=== PATIENT | female | born 1985 | race Two or more races ===

== ENCOUNTER 2020-06-06 09:25 | Outpatient (REF) | payer OTHER, SELFPAY | END 2020-06-06 09:26 | disposition home or self-care (01) | LOC: HO.LAB 09:25 | PROVIDERS: Visit Provider Internal Medicine | DX: Z20.828 Contact with and (suspected) exposure to other viral communicable diseases (principal) | CPT/HCPCS: C9803; U0003 ==

== ENCOUNTER 2020-09-25 09:33 | Outpatient (REF) | payer OTHER, SELFPAY ==
[2020-09-25 10:11] LABS: MANUAL DIFF FLAG NO
[2020-09-25 10:20] LABS: Basophils Percent Auto 0.9 % (0-2); Eosinophils Absolute Auto 0.1 X10*3/uL (0.0-0.4); Eosinophils Percent Auto 1.8 % (0-4); Hematocrit 35.3 % (37-47); Imm Gran Abs Auto 0.01 X10*3/uL (0.00-0.03); Imm Gran Pct Auto 0.2 % (0.0-0.4); Lymphocytes Percent Auto 44.4 % (20-40); Mean Corpuscular Hemoglobin 29.2 pg (27.0-33.0); Mean Corpuscular Volume 85.9 fL (80-98); Mean Platelet Volume 10.2 fL (9.4-12.3); Monocytes Absolute Auto 0.3 X10*3/uL (0.1-1.2); Monocytes Percent Auto 5.7 % (2-11); Neutrophils Absolute Auto 2.1 X10*3/uL (2.0-8.3); Platelet Count 324 X10*3/uL (160-400); Red Blood Count 4.11 X10*6/uL (4.20-5.50); Red Cell Distribution Width 13.1 % (11.0-16.0); White Blood Count 4.4 X10*3/uL (4.8-10.8)
[2020-09-25 10:49] LABS: Alanine Aminotransferase 21 U/L (0-31); Albumin Level 4.3 g/dL (3.5-5.0); Alkaline Phosphatase 74 U/L (39-117); Anion Gap 10 (12-20); Aspartate Amino Transferase 23 U/L (5-31); Bilirubin Total 0.3 mg/dL (0.0-1.0); Blood Urea Nitrogen 12 mg/dL (9-16); Calcium 8.9 mg/dL (8.4-10.2); Carbon Dioxide 25 mmol/L (22-29); Chloride 107 mmol/L (96-108); Cholesterol 188 mg/dL; Estimated Glomerular Filt Rate > 60; Glucose Fasting 93 mg/dL (60-99); HDL Cholesterol 44 mg/dL; LDL Cholesterol Calculated 130 mg/dl; Potassium 4.2 mmol/L (3.3-5.1); Sodium 138 mmol/L (135-145); Total Protein 7.3 g/dL (6.5-8.0); Triglycerides 73 mg/dL
[2020-10-01 12:36] LABS: Vitamin D 25-OH, D2 <4 ng/mL; Vitamin D 25-OH, D3 13 ng/mL; Vitamin D 25-OH, Total 13 ng/mL (30-100)
== END 2020-09-25 09:34 | disposition home or self-care (01) ==
LOC: HO.LAB 09:33
PROVIDERS: PCP Internal Medicine; Visit Provider Internal Medicine
DX: E78.5 Hyperlipidemia, unspecified (principal); E55.9 Vitamin D deficiency, unspecified; Z13.0 Encounter for screening for diseases of the blood and blood-forming organs and certain disorders involving the immune mechanism; Z82.49 Family history of ischemic heart disease and other diseases of the circulatory system
CPT/HCPCS: 36415; 80053; 80061; 82306; 85025

== ENCOUNTER 2021-09-15 09:46 | Outpatient (REF) | payer OTHER, SELFPAY ==
[2021-09-15 10:13] LABS: MANUAL DIFF FLAG NO
[2021-09-15 10:41] LABS: Basophils Percent Auto 0.6 % (0-2); Eosinophils Absolute Auto 0.1 X10*3/uL (0.0-0.4); Eosinophils Percent Auto 2.1 % (0-4); Hemoglobin 12.4 g/dl (12.0-16.0); Imm Gran Abs Auto 0.01 X10*3/uL (0.00-0.03); Imm Gran Pct Auto 0.2 % (0.0-0.4); Lymphocytes Absolute Auto 2.6 X10*3/uL (1.2-4.9); Lymphocytes Percent Auto 54.6 % (20-40); Mean Corpuscular HGB Conc 33.5 g/dl (31.0-35.0); Mean Corpuscular Hemoglobin 29.2 pg (27.0-33.0); Mean Corpuscular Volume 87.3 fL (80.0-98.0); Mean Platelet Volume 9.9 fL (9.4-12.3); Monocytes Absolute Auto 0.3 X10*3/uL (0.1-1.2); Monocytes Percent Auto 6.6 % (2-11); Neutrophils Absolute Auto 1.7 x10*3/uL (2.0-8.3); Neutrophils Percent Auto 35.9 % (45-73); Platelet Count 339 X10*3/uL (160-400); Red Blood Count 4.24 X10*6/uL (4.20-5.50); Red Cell Distribution Width 12.4 % (11.0-16.0); White Blood Count 4.7 X10*3/uL (4.8-10.8)
[2021-09-19 13:41] LABS: Vitamin D 25-OH, D2 6 ng/mL; Vitamin D 25-OH, D3 10 ng/mL; Vitamin D 25-OH, Total 16 ng/mL (30-100)
== END 2021-09-15 09:47 | disposition home or self-care (01) ==
LOC: HO.LAB 09:46
PROVIDERS: PCP Internal Medicine; Visit Provider Internal Medicine
DX: G43.909 Migraine, unspecified, not intractable, without status migrainosus (principal); E55.9 Vitamin D deficiency, unspecified
CPT/HCPCS: 36415; 82306; 85025

== ENCOUNTER 2023-01-20 20:09 | Emergency (ER) | payer OTHER, SELFPAY ==
[2023-01-20 20:37] VITALS: BP 106/81; PULSE 83; RESP 16; TEMP 36.4; O2SAT 98; BMI 25.2
--- NOTE | 2023-01-20 20:37 | ED.SKABFB ---
HPI - Skin/Abscess/Foreign Bdy General Chief complaint: General Medical Stated complaint: Draining a cyst Time Seen by Provider: 01/21/23 01:30 Source: patient Mode of arrival: ambulatory Limitations: no limitations History of Present Illness HPI narrative: patient with 3 days of bartholyns cyst now with increasing pain and size complaint: abscess/boil Onset (ago): day(s) Tetanus up to date: yes Related Data Previous Rx's Medication Instructions Recorded docusate sodium 100 mg capsule 100 mg PO DAILY PRN constipation 09/15/21 (Colace) 90 days #90 caps sumatriptan succinate 25 mg tablet 25 mg PO Q2-4H PRN migraine 11/01/21 headache 30 days #9 tabs cholecalciferol (vitamin D3) 50 50 mcg PO DAILY 90 days #90 caps 12/31/21 mcg (2,000 unit) capsule Allergies Allergy/AdvReac Type Severity Reaction Status Date / Time No Known Allergies Allergy Verified 01/20/23 20:37 Review of Systems Review of Systems: Yes all other systems are reviewed and are negative Genitourinary: Comments: vaginal pain and swelling Neurologic: Denies Sensory deficit (Neuro) PMFSH Past Medical History Medical History Benign mole Constipation by delayed colonic transit Encounter for physical examination Family history of hypertension Hypovitaminosis D Migraines Screening for deficiency anemia Surgical History History of section History of tubal ligation Family History Family History Father Mental health disorder Mother Diabetes Hepatitis C Liver disease Hypertension Stroke Mental health disorder Substance use disorder Maternal Grandmother Stroke Daughter In good health Sister In good health Brother No problems noted. Son In good health Social History Social History Housing: House Alcohol intake: current Alcohol intake frequency: holidays/special occasions only Alcohol type: hard liquor Patient Tobacco Use Status: Never used Tobacco Smoked in Last 30 Days: No e-Cigarette/Vaping Use: Never Used Second Hand Smoke Exposure: Yes Use of substances other than those prescribed or required for medical reasons: No Advance Directives: No Advance Directives Information Provided: Yes Patient : No service: No Current occupational status: employed Current occupational exposures/hazards: No Cognitive needs: No Hearing needs: No Vision needs: No Physical Exam Vital Signs: Vital Signs: Last Vital Signs Temp 98.1 F 01/21/23 01:04 Pulse 86 01/21/23 01:04 Resp 17 01/21/23 01:04 BP 127/80 01/21/23 01:04 Pulse Ox 99 01/21/23 01:04 O2 Del Method Room Air 01/21/23 01:04 BMI result Body Mass Index 25.2 Const: General: healthy appearing Nutritional Appearance: average body habitus Orientation/consciousness: oriented to person and patient oriented x3 Limitations: no limitations HEENT: Head: Yes normal to inspection Ears: external ears normal General nose exam: Normal external nose present Mouth: Normal oral and palatal mucosa present and oropharynx normal Throat: Yes posterior oropharynx normal Eyes: General: appearance normal, both eyes and all related structures Neck: Other: supple Neck: Yes normal visual inspection Chest: Chest palpation & inspection: normal inspection of the chest Resp: Auscultation: clear to auscultation bilaterally Cardio: Jugular venous distension: no JVD Rate: regular rate Rhythm: regular rhythm Heart sounds: S1 normal heart sound present and S2 normal heart sound present GI: Inspection: Yes normal to inspection Palpation (GI): Soft to palpation, nontender and No hepatosplenomegaly present Auscultation: normal bowel sounds : Other: right labial minora swelling with pain General: Yes no CVA tenderness Back/Spine/Pelvis: Back: no CVA tenderness Skin: General skin exam: no rashes or lesions noted Neuro: General: oriented to person and patient oriented x3 Cranial nerves: Yes CN's II-XII intact bilaterally Motor exam (neuro): 5/5 motor strength present throughout Sensory Exam: No Sensory deficit (Neuro) Extrem: General: Yes normal to inspection Psych: Appearance: grossly normal Course Course Course Narrative: RME: 37yo F w/PMHx migraines, Bartholin's cyst, c/o Bartholin's cyst to R side x3 days. denies being open & draining at present. no difficulty urinating or defecating. LMP now Area not evaluated in triage Full HPI, ROS and PE to be performed by primary ED provider. Medications Administered Discontinued Medications Generic Name Dose Route Start Last Admin Trade Name Freq PRN Reason Stop Dose Admin Lidocaine/Epinephrine 10 ml 01/21/23 01:49 01/21/23 01:57 Lidocaine Hcl 1%/Epi 1:100,000 10 Ml Vial SUBCUT 01/21/23 01:50 10 ml ONCE ONE Administration Medical Decision Making Differential Diagnosis Differential Diagnoses: The differential diagnosis associated with the presentation includes (Bartholyns cyst , labial abscess) Tests considered The following testing was considered but not selected: considered obtaining an ultrasound, but cyst consistent with bartholyn's Prescription Management I considered prescription management with: Pain Medication (i considered narcotics but patients pain relieved with drainage) and Antibiotic (antibiotics considered but excellent drainage and word catheter in place) Chronic Conditions Patient?s care impacted by: Other (prior bartholyns cyst) Procedures Procedure Narrative Procedure Narrative: Patient prepped and draped in sterile fashion. !% epi with lidocaine used for anesthesia. 11 blade used, large amount of pus removed, word catheter placed Patient tolerated procedure well Discharge Plan Discharge Clinical Impression: Bartholin's cyst Patient Disposition: Home, Self-Care Instructions: Bartholin Cyst (ED) Prescriptions: No Action sumatriptan succinate 25 mg tablet 25 mg PO Q2-4H PRN (Reason: migraine headache) 30 Days Qty: 9 1RF Rx Instructions: do not exceed 8 doses per 24 hrs cholecalciferol (vitamin D3) 50 mcg (2,000 unit) capsule 50 mcg PO DAILY 90 Days Qty: 90 1RF docusate sodium [Colace] 100 mg capsule 100 mg PO DAILY PRN (Reason: constipation) 90 Days Qty: 90 0RF Referrals: Liliana Perry MD [Primary Care Provider] - 3 days
[2023-01-21 01:04] VITALS: BP 127/80; PULSE 86; RESP 17; TEMP 36.7; O2SAT 99
[2023-01-21] MEDS: Lidocaine HCl 1%/Epi 1:100,000 10 ML VIAL SUBCUT (01:57)
--- NOTE | 2023-01-21 02:48 | MHC.EDTECH ---
This tech assisted with the set up of an I&D procedure, pt tolerated this procedure very well.awaiting discharge at this time
== END 2023-01-21 02:55 | disposition home or self-care (01) ==
PROVIDERS: Emergency Provider Emergency Medicine; PCP Internal Medicine
DX: N75.0 Cyst of Bartholin's gland (principal); Z79.899 Other long term (current) drug therapy
CPT/HCPCS: 56420; 99284

== ENCOUNTER 2023-08-04 12:23 | Outpatient (REF) | payer OTHER, SELFPAY ==
[2023-08-04 13:28] LABS: Alanine Aminotransferase 17 U/L (0-31); Albumin Level 4.2 g/dL (3.5-5.0); Alkaline Phosphatase 70 U/L (39-117); Anion Gap 13 (12-20); Aspartate Amino Transferase 16 U/L (5-31); Bilirubin Total 0.3 mg/dL (0.0-1.0); Blood Urea Nitrogen 8 mg/dL (9-16); Carbon Dioxide 25 mmol/L (22-29); Chloride 107 mmol/L (96-108); Cholesterol 180 mg/dL (<200); Estimated Glomerular Filt Rate > 60; Glucose Fasting 91 mg/dL (60-99); HDL Cholesterol 47 mg/dL (>40); LDL Cholesterol Calculated 113 mg/dL (<100); Potassium 3.8 mmol/L (3.3-5.1); Sodium 141 mmol/L (135-145); Total Protein 7.3 g/dL (6.5-8.0); Triglycerides 101 mg/dL (<150)
[2023-08-04 13:46] LABS: Vitamin D 25-OH Total 8.5 ng/mL (>30)
== END 2023-08-04 12:24 | disposition home or self-care (01) ==
LOC: HO.LAB 12:23
PROVIDERS: PCP Internal Medicine; Visit Provider Internal Medicine
DX: Z00.00 Encounter for general adult medical examination without abnormal findings (principal); E55.9 Vitamin D deficiency, unspecified
CPT/HCPCS: 36415; 80053; 80061; 82306

== ENCOUNTER 2024-05-27 17:15 | Outpatient (AMB) | payer OTHER, SELFPAY ==
--- NOTE | 2024-05-27 17:17 | A.OFFPC_ITS ---
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 Accompanied by: Self / Same As Patient Allergies No Known Allergies Allergy (Verified 05/27/24 17:43) Medication List - Last Reconciled 05/27/24 by Liliana Moss MD sumatriptan succinate 25 mg PO Q2-4H PRN 30 days Tobacco use date assessed: 05/27/24 Dental Screening Dental Screen Date: 05/27/24 Did you have a dental visit in the last 12 months?: No Did you have a dental problem in the last 6 months where you did not have access to dental care?: No Was dental information given to patient?: Patient has dentist HPI HPI Comments History of Present Illness Details The patient is a 38-year-old female presenting for her physical exam. She reports experiencing sinus issues, for which she has been advised to seek medical treatment. Additionally, she experiences constipation, having bowel movements less than three times a week, which aligns with her experiences of infrequent bowel movements every two to three days. She has a history of migraine, managed with sumatriptan, and notes two prior sections and tubal ligation in 2009. The patient experiences mild depression and anxiety but considers them manageable without external intervention. Her last gynecological screening with a Pap smear was conducted earlier this year and was noted as normal. [facility] Medical History Constipation by delayed colonic transit Encounter for physical examination Benign mole Migraines Hypovitaminosis D Family history of hypertension Screening for deficiency anemia Surgical History History of tubal ligation History of section Family History Father Mental health disorder Mother Diabetes Hepatitis C Liver disease Hypertension Stroke Mental health disorder Substance use disorder Maternal Grandmother Stroke Daughter In good health Sister In good health Brother No problems noted. Son In good health Social History Housing: House Alcohol intake: current Alcohol intake frequency: holidays/special occasions only Alcohol type: hard liquor Patient Tobacco Use Status: Never used Tobacco e-Cigarette/Vaping Use: Never Used Second Hand Smoke Exposure: Yes service: No Current occupational status: employed Current occupational exposures/hazards: No Cognitive needs: No Hearing needs: No Vision needs: No Questionnaire PHQ-9 Over the last 2 weeks, how often have you been bothered by any of the following problems? 1. Little interest or pleasure in doing things: several days 2. Feeling down, depressed, or hopeless: several days 3. Trouble falling or staying asleep, or sleeping too much: not at all 4. Feeling tired or having little energy: several days 5. Poor appetite or overeating: several days 6. Feeling bad about yourself - or that you are a failure or have let yourself or your family down: several days 7. Trouble concentrating on things, such as reading the newspaper or watching television: not at all 8. Moving or speaking so slowly that other people could have noticed. Or the opposite - being so fidgety or restless that you have been moving around a lot more than usual: several days 9. Thoughts that you would be better off or of hurting yourself in some way: not at all Total score: 6 Depression Screening Interpretation: Positive Depression Screening Follow-up: Existing condition and Follow-up Visit Requested Depression Screening Done: Yes 43638 - PHQ-9 Billing: Yes Source: Developed by Drs. Rony Thomas, Cari Stewart, Mitchell Chairez and colleagues, with an educational kaylee from [employer]. Thrive Questionnaire Date Thrive assessed: 05/27/24 I am a: Patient What is your living situation today?: I have a steady place to live Within the past 12 months, did the food you bought not last and you didn't have the money to get more?: Sometimes True Within the past 12 months, did you worry whether your food would run out before you got money to buy more?: Sometimes True Do you have trouble paying for medicines?: No Do you have trouble getting transportation to medical appointments?: No Do you have trouble paying your heating and electricity bill?: No Do you have trouble taking care of your child, family member or friend?: No Do you have trouble with day-to-day activities such as bathing, preparing meals, shopping, managing finances, etc.?: No Are you currently unemployed and looking for a job?: No Are you interested in more education?: Yes Please select the resources that you would like help with: None Currently or been in a relationship where the following occur: No concerns r eported THRIVE Score: 2 AUDIT C Alcohol Use Questionnaire (AUDIT-C) 1. How often do you have a drink containing alcohol?: Monthly or less 2. How many drinks containing alcohol do you have on a typical day when you are drinking?: 3 or 4 3. How often do you have six or more drinks on one occasion?: Never Total Score: 2 Score Reviewed/Action Taken: No CORNELIA-7 AMB Questionnaire CORNELIA-7 Date CORNELIA - 7 assessed: 05/27/24 Feeling nervous, anxious, or on edge: 1 = Several days Not being able to stop or control worryin = Several days Worrying too much about different things: 1 = Several days Trouble relaxin = Several days Being so restless that it is hard to sit still: 0 = Not at all Becoming easily annoyed or irritable: 1 = Several days Feeling afraid as if something awful might happen: 0 = Not at all Total CORNELIA-7 score (0-4 normal; 5-9 mild; 10-14 moderate; 15-21 severe): 5 Source: Developed by Drs. Rony Thomas, Cari Stewart, Mitchell Chairez and colleagues, with an educational kaylee from [employer]. CORNELIA-7 Assessment Billing CORNELIA-7 Assessment Tool: CORNELIA-7 Assessment 78044 Review of Systems Const All systems reviewed & are unremarkable except as noted in HPI and below Card Denies chest pain at rest, Denies chest pain with activity, Denies edema, Denies irregular heart rhythm, Denies claudication, Denies dyspnea, Denies dyspnea on exertion, Denies orthopnea, Denies paroxysmal nocturnal dyspnea and Denies slow heart rate Resp Denies cough, Denies dyspnea and Denies dyspnea on exertion GI Denies abdominal pain, Denies change in bowel habits, Denies excessive flatus, Denies nausea and Denies vomiting Denies urinary incontinence, Denies urinary hesitancy and Denies urinary urgency Musc Denies abnormal gait, Denies atrophy, Denies deformity and Denies limited range of motion Skin/Breast Denies bleeding lesions, Denies changing lesions and Denies rash Neuro Denies abnormal gait and Denies lack of coordination Physical exam (Primary Care) Vital Signs: Last Vital Signs BP 112/66 05/27/24 17:18 BMI result Body Mass Index 30.2 BMI Assessment/Plan discussion: High BMI High, discussed plan: lifestyle, weight reduction, dietary and physical activity Tobacco/Smoking Status: Tobacco use Status Tobacco use date assessed 05/27/24 05/27/24 17:24 Patient Tobacco Use Status Never used Tobacco 05/27/24 17:24 e-Cigarette/Vaping Use Never Used 05/27/24 17:24 PHQ-9: PHQ-9 Score PHQ-9: Total score 6 05/27/24 17:47 Depression Screening Interpretation: Positive Depression Screening Follow-up: Existing condition and Follow-up Visit Requested Thrive Assessment: Date of Thrive Assessment Date Thrive assessed 05/27/24 05/27/24 17:24 Currently or been in a relationship where the following occur: No concerns reported [facility] Head: Yes normal to inspection, Yes normocephalic and Yes atraumatic Eyes General: appearance normal, both eyes and all related structures Eyelids: Yes eyelids normal Conjunctivae: conjunctivae normal Neck Neck: Yes normal visual inspection and Yes supple Resp Effort & Inspection: normal respiratory effort Auscultation: clear to auscultation bilaterally Cardio Jugular venous distension: no JVD Rate: regular rate Rhythm: regular rhythm Heart sounds: S1 normal heart sound present and S2 normal heart sound present GI Inspection: Yes normal to inspection Palpation (GI): Soft to palpation and nontender Auscultation: normal bowel sounds Skin General skin exam: no rashes or lesions noted Neuro General: no focal motor deficits Extrem General: Yes full ROM Psych Appearance: grossly normal Office Procedures Flu Questionnaire Does the patient have a severe egg allergy?: No Immunizations Fluarix Triv [id number] (PF) 45 mcg (15 mcg x 3)/0.5 mL IM syringe Performing Provider: Liliana Moss MD [facility] Documented (not given) by: RICK Daly on 05/27/24 17:24 Reason Not Given: Patient Refused Coding Level of Care Code Est Pt Level 3 (70141) Est Pt Prev Care 18-39y(72561) Diagnoses Encounter for physical examination Z00.00 Acute maxillary sinusitis J01.00 Constipation by delayed colonic transit K59.01 Additional Codes CORNELIA-7 Assessment Billing - CORNELIA-7 Assessment Tool: CORNELIA-7 Assessment 21203 ([id number]) PHQ-9 - 62009 - PHQ-9 Billing: Yes ([id number]) Time Spent (min) 33 Assessment & Plan Assessment & Plan (1) Encounter for physical examination: Code(s): Z00.00 - Encounter for general adult medical examination without abnormal findings Category: Medical (2) Acute maxillary sinusitis: Code(s): J01.00 - Acute maxillary sinusitis, unspecified Category: Medical (3) Constipation by delayed colonic transit: Code(s): K59.01 - Slow transit constipation Category: Medical Plan - Sinusitis: Prescribe antibiotic medication for sinus infection. - Constipation: Monitor bowel habits; no immediate intervention if bowel movements are more than three times per week. - Depression and Anxiety: Continue self-management; no immediate psychiatric referral deemed necessary. - Preventative Care: Recommend considering seasonal influenza vaccination. Physical exam will be repeated in a year. Patient was informed and verbally consented to the use of an ambient scribe for clinic note documentation during this visit. Orders: Orders Influenza [id number] Immunization Today Z23 - Encounter for immunization Medications: New amoxicillin 500 mg PO BID 14 caps 0RF 7 days Refilled sumatriptan succinate do not exceed 8 doses per 24 hrs 25 mg PO Q2-4H PRN 9 tabs 1RF migraine headache 30 days G43.909 - Migraine, unspecified, not intractable, without status migrainosus Patient Instructions: - Complete the prescribed course of antibiotics for sinusitis. - Monitor bowel movement frequency, ensuring it remains more than three times per week. - Consider getting the influenza vaccine for preventative health. - Continue self-management strategies for depression and anxiety; seek advice if symptoms worsen.
[2024-05-27 17:18] VITALS: BP 112/66; BMI 30.2
== END 2024-05-27 17:52 | disposition home or self-care (01) ==
PROVIDERS: PCP Internal Medicine; Visit Provider Internal Medicine
DX: Z00.00 Encounter for general adult medical examination without abnormal findings (principal); J01.00 Acute maxillary sinusitis, unspecified; K59.01 Slow transit constipation

== ENCOUNTER → 2024-05-27 17:15 | Outpatient (BNVA) | payer OTHER, SELFPAY | PROVIDERS: PCP Internal Medicine; Visit Provider Internal Medicine | DX: Z00.00 Encounter for general adult medical examination without abnormal findings (principal); J01.00 Acute maxillary sinusitis, unspecified; K59.01 Slow transit constipation; Z28.21 Immunization not carried out because of patient refusal | CPT/HCPCS: 96127 ==

== ENCOUNTER 2025-05-29 07:52 | Outpatient (AMB) | payer OTHER, SELFPAY ==
--- NOTE | 2025-05-29 08:33 | MHC.PC.OV ---
Vital Signs 05/29/25 08:36 Height 5 ft 4.57 in Weight 168 lb BMI 28.3 BP 118/74 Blood Pressure Location Lt brachial Position Sitting Respiration 18 Pulse 81 Pulse Source Pulse Oximeter Temp 98 F Temp Source Temporal Artery Scan Pulse Oximetry (%) 99 Oxygen Delivery Method Room Air Intake Visit Reasons: annual exam Intake Note: annual exam Field Identification Specialist Required: No Accompanied by: Self / Same As Patient Allergies No Known Allergies Allergy (Verified 05/29/25 09:01) Medication List - Last Reconciled 05/29/25 by Liliana Moss MD No Known Home Meds Tobacco use date assessed: 05/29/25 Dental Screening Dental Screen Date: 05/29/25 Did you have a dental visit in the last 12 months?: No Did you have a dental problem in the last 6 months where you did not have access to dental care?: No Was dental information given to patient?: No HPI HPI Comments History of Present Illness Details The patient is a 39 year old individual presenting for an annual physical examination. The patient reports pain in right clavicle for approximately one month, which the patient attributes to sleeping position. There is no history of a fall or other trauma. The patient reports feeling depressed occasionally but states they are able to manage these feelings without intervention. Past medical history includes low vitamin D levels. Past surgical history is significant for two C-sections in 2007 and 2009, and a tubal ligation. Family history is notable for a father who from colon cancer in his 50s and a mother who has breast cancer, diabetes, hypertension, and hepatitis C. The patient has no known medication allergies and takes no regular medications. She had Pap smear done this year. Declines Tdap vaccine today. Declines flu vaccine. [facility] Medical History (Updated 05/29/25 @ 09:15 by Liliana Moss MD) Constipation by delayed colonic transit Encounter for physical examination Benign mole Migraines Hypovitaminosis D Family history of hypertension Screening for deficiency anemia Surgical History History of tubal ligation History of section Family History Father Mental health disorder Mother Diabetes Hepatitis C Liver disease Hypertension Stroke Mental health disorder Substance use disorder Maternal Grandmother Stroke Daughter In good health Sister In good health Brother No problems noted. Son In good health Social History Housing: House Alcohol intake: current Alcohol intake frequency: holidays/special occasions only Alcohol type: hard liquor Patient Tobacco Use Status: Never used Tobacco e-Cigarette/Vaping Use: Never Used Second Hand Smoke Exposure: Yes service: No Current occupational status: employed Current occupational exposures/hazards: No Cognitive needs: No Hearing needs: No Vision needs: No Questionnaire PHQ-9 Over the last 2 weeks, how often have you been bothered by any of the following problems? 1. Little interest or pleasure in doing things: several days 2. Feeling down, depressed, or hopeless: several days 3. Trouble falling or staying asleep, or sleeping too much: not at all 4. Feeling tired or having little energy: several days 5. Poor appetite or overeating: several days 6. Feeling bad about yourself - or that you are a failure or have let yourself or your family down: several days 7. Trouble concentrating on things, such as reading the newspaper or watching television: not at all 8. Moving or speaking so slowly that other people could have noticed. Or the opposite - being so fidgety or restless that you have been moving around a lot more than usual: not at all 9. Thoughts that you would be better off or of hurting yourself in some way: not at all Total score: 5 Depression Screening Interpretation: Positive Depression Screening Follow-up: Existing condition and Follow-up Visit Requested Depression Screening Done: Yes 71864 - PHQ-9 Billing: Yes Source: Developed by Drs. Rony Thomas, Cari Stewart, Mitchell Chairez and colleagues, with an educational kaylee from [employer]. Thrive Questionnaire Date Thrive assessed: 05/29/25 I am a: Patient What is your living situation today?: I have a steady place to live Within the past 12 months, did the food you bought not last and you didn't have the money to get more?: Sometimes True Within the past 12 months, did you worry whether your food would run out before you got money to buy more?: Never true Do you have trouble paying for medicines?: No Do you have trouble getting transportation to medical appointments?: No Do you have trouble paying your heating and electricity bill?: No Do you have trouble taking care of your child, family member or friend?: No Do you have trouble with day-to-day activities such as bathing, preparing meals, shopping, managing finances, etc.?: No Are you currently unemployed and looking for a job?: No Are you interested in more education?: No Please select the resources that you would like help with: Utilities Currently or been in a relationship where the following occur: No concerns reported THRIVE Score: 1 AUDIT C Alcohol Use Questionnaire (AUDIT-C) 1. How often do you have a drink containing alcohol?: Monthly or less 2. How many drinks containing alcohol do you have on a typical day when you are drinking?: 3 or 4 3. How often do you have six or more drinks on one occasion?: Never Total Score: 2 Score Reviewed/Action Taken: No CORNELIA-7 AMB Questionnaire CORNELIA-7 Date CORNELIA - 7 assessed: 05/29/25 Feeling nervous, anxious, or on edge: 1 = Several days Not being able to stop or control worryin = Several days Worrying too much about different things: 1 = Several days Trouble relaxin = Several days Being so restless that it is hard to sit still: 0 = Not at all Becoming easily annoyed or irritable: 1 = Several days Feeling afraid as if something awful might happen: 1 = Several days Total CORNELIA-7 score (0-4 normal; 5-9 mild; 10-14 moderate; 15-21 severe): 6 Source: Developed by Drs. Rony Thomas, Cari Stewart, Mitchell Chairez and colleagues, with an educational kaylee from [employer]. CORNELIA-7 Assessment Billing CORNELIA-7 Assessment Tool: CORNELIA-7 Assessment 07097 Review of Systems Const All systems reviewed & are unremarkable except as noted in HPI and below Card Denies chest pain at rest, Denies chest pain with activity, Denies edema, Denies irregular heart rhythm, Denies claudication, Denies dyspnea, Denies dyspnea on exertion, Denies orthopnea, Denies paroxysmal nocturnal dyspnea and Denies slow heart rate Resp Denies cough, Denies dyspnea and Denies dyspnea on exertion Physical exam (Primary Care) Vital Signs: Last Vital Signs Temp 98 F 05/29/25 08:36 Pulse 81 05/29/25 08:36 Resp 18 05/29/25 08:36 BP 118/74 05/29/25 08:36 Pulse Ox 99 05/29/25 08:36 Oxygen Delivery Method Room Air 05/29/25 08:36 BMI result Body Mass Index 28.3 Tobacco/Smoking Status: Tobacco use Status Tobacco use date assessed 05/29/25 05/29/25 08:40 Patient Tobacco Use Status Never used Tobacco 05/29/25 08:39 e-Cigarette/Vaping Use Never Used 05/29/25 08:39 PHQ-9: PHQ-9 Score PHQ-9: Total score 5 05/29/25 08:40 Depression Screening Interpretation: Positive Depression Screening Follow-up: Existing condition and Follow-up Visit Requested Thrive Assessment: Date of Thrive Assessment Date Thrive assessed 05/29/25 05/29/25 08:40 Currently or been in a relationship where the following occur: No concerns reported HENMT Head: Yes normal to inspection, Yes normocephalic and Yes atraumatic Ears: external ears normal Eyes General: appearance normal, both eyes and all related structures Eyelids: Yes eyelids normal Conjunctivae: conjunctivae normal Neck Neck: Yes normal visual inspection and Yes supple Resp Effort & Inspection: normal respiratory effort Auscultation: clear to auscultation bilaterally Cardio Jugular venous distension: no JVD Rate: regular rate Rhythm: regular rhythm Heart sounds: S1 normal heart sound present and S2 normal heart sound present GI Inspection: Yes normal to inspection Palpation (GI): Soft to palpation and nontender Auscultation: normal bowel sounds Skin General skin exam: no rashes or lesions noted Neuro General: no focal motor deficits Extrem General: Yes full ROM Psych Appearance: grossly normal Coding Level of Care Code Est Pt Level 3 (32141) Est Pt Prev Care 18-39y([id number]) Diagnoses Encounter for physical examination Z00.00 Pain of right clavicle M89.8X1 Additional Codes CORNELIA-7 Assessment Billing - CORNELIA-7 Assessment Tool: CORNELIA-7 Assessment 36821 ([id number]) PHQ-9 - 65838 - PHQ-9 Billing: Yes ([id number]) Time Spent (min) 33 Assessment & Plan Assessment & Plan (1) Encounter for physical examination: Code(s): Z00.00 - Encounter for general adult medical examination without abnormal findings Category: Medical (2) Pain of right clavicle: Code(s): M89.8X1 - Other specified disorders of bone, shoulder Category: Medical Plan Plan 1. Physical exam Repeat in a year. 2. Depression The patient reports occasional feelings of depression but states they are manageable. No acute intervention is planned at this time; will continue to monitor. Orders: Orders XR clavicle RT Today M89.8X1 - Other specified disorders of bone, shoulder Lipid Panel Today E78.5 - Hyperlipidemia, unspecified Comprehensive [place]. Panel Fast Today Z00.00 - Encounter for general adult medical examination without abnormal findings Vitamin D 25-OH Total Today E55.9 - Vitamin D deficiency, unspecified Complete Blood Count Auto Diff Today D64.9 - Anemia, unspecified
[2025-05-29 08:36] VITALS: BP 118/74; PULSE 81; RESP 18; TEMP 36.6; O2SAT 99; BMI 28.3
== END 2025-05-29 09:15 | disposition home or self-care (01) ==
LOC: HO.HMCH 07:53
PROVIDERS: PCP Internal Medicine; Visit Provider Internal Medicine
DX: Z00.00 Encounter for general adult medical examination without abnormal findings (principal); M89.8X1 Other specified disorders of bone, shoulder

== ENCOUNTER → 2025-05-29 07:52 | Outpatient (BNVA) | payer OTHER, SELFPAY | PROVIDERS: PCP Internal Medicine; Visit Provider Internal Medicine | DX: Z00.00 Encounter for general adult medical examination without abnormal findings (principal); M89.8X1 Other specified disorders of bone, shoulder | CPT/HCPCS: 96127 ==